=== PATIENT | female | born 1975 | race Caucasian/White ===

== ENCOUNTER → 2017-12-12 | Outpatient (CLI) | payer OTHER ==
[~2017-12-12] MED LIST: DOCU100 PO; ESTR2 PO; HYDR-86 PO; Hydrocodone-Ap1 EA23 PO; IBUP400 PO; IBUP800 PO; K-Dur20 MEQ PO; MAGCHL64ER PO; METO25ER PO; Norco 5-325 Ta1 EACH PO; PROM25 PO; Polysaccharide150 MG PO; SIME80CH PO
== END ==
LOC: LAB SRC 10:28
DX: N39.0 Urinary tract infection, site not specified (principal); N12 Tubulo-interstitial nephritis, not specified as acute or chronic
CPT/HCPCS: 87077; 87086; 87186

== ENCOUNTER → 2019-02-26 | Outpatient (CLI) | payer OTHER | END | disposition home or self-care (01) | LOC: LAB SHORT 09:10 → LAB SRC 09:10 | DX: R39.15 Urgency of urination (principal) | CPT/HCPCS: 87077; 87086; 87186 ==

== ENCOUNTER → 2019-11-05 | Outpatient (CLI) | payer OTHER | END | disposition home or self-care (01) | LOC: LAB SHORT 10:40 → LAB SRC 10:40 | DX: N39.0 Urinary tract infection, site not specified (principal); R35.0 Frequency of micturition | CPT/HCPCS: 87077; 87086; 87186 ==